=== PATIENT | female | born 1945 | race Caucasian/White ===

== ENCOUNTER 2024-10-28 15:23 | Emergency (ER) | payer MEDICARE | END 2024-10-28 20:00 | LOC: JP.ED 15:23 | DX: S72.401A Unspecified fracture of lower end of right femur, initial encounter for closed fracture (principal); I12.9 Hypertensive chronic kidney disease with stage 1 through stage 4 chronic kidney disease, or unspecified chronic kidney disease; N18.9 Chronic kidney disease, unspecified; E03.9 Hypothyroidism, unspecified; Z79.82 Long term (current) use of aspirin; Z79.899 Other long term (current) drug therapy; Z79.890 Hormone replacement therapy; Z99.2 Dependence on renal dialysis; W01.0XXA Fall on same level from slipping, tripping and stumbling without subsequent striking against object, initial encounter; Y93.89 Activity, other specified | CPT/HCPCS: 51702; 73552; 96374; 96376; 99285; J2270 ==